=== PATIENT | male | born 1995 | race Caucasian/White ===

== ENCOUNTER 2018-09-05 19:01 | Emergency (ER) | payer MEDICAID ==
[~2018-09-05] VITALS: Ht 165.1 cm; Wt 95.3 kg
[2018-09-05 19:15] VITALS: BP 145/90
--- NOTE | 2018-09-05 19:33 | NUR ---
PATIENT PRESENTS TO ED WITH C/O DIARRHEA, HEAD ACHE, COUGH, RHINORRHEA X 4 DAYS. SKIN IS PINK/WARM/DRY; AAOX4 WITH EVEN AND STEADY GAIT; LUNGS CLEAR BL; HR EVEN AND REGULAR; PT DENIES ANY FEVER, CP, SOB, OR COUGH AT THIS TIME; PATIENT STATES PAIN OF 0/10 AT THIS TIME; VSS; PATIENT POSITIONED FOR COMFORT; HOB ELEVATED; BEDRAILS UP X2; BED DOWN. ER MD MADE AWARE OF PT STATUS. PMH--DENIES RX--DENIES
[2018-09-05 19:40] VITALS: BP 130/85
--- NOTE | 2018-09-05 19:40 | NUR ---
Patient discharged with v/s stable. Written and verbal after care instructions given and explained. Patient alert, oriented and verbalized understanding of instructions. Ambulatory with steady gait. All questions addressed prior to discharge. ID band removed. Patient advised to follow up with PMD. Rx of MOTRIN 800MG, PROMETHAZINE HYDROCHLORIDE/DEXTROMETHORPHAN HYDROBROMIDE 6.25MG-15MG/5ML given. Patient educated on indication of medication including possible reaction and side effects. Opportunity to ask questions provided and answered.
== END 2018-09-05 19:40 | disposition home or self-care (01) ==
LOC: MED 19:01
DX: J11.1 Influenza due to unidentified influenza virus with other respiratory manifestations (principal); R19.7 Diarrhea, unspecified
CPT/HCPCS: 99283

== ENCOUNTER 2019-01-02 13:37 | Emergency (ER) | payer MEDICAID, OTHER ==
[~2019-01-02] VITALS: Ht 165.1 cm; Wt 99.8 kg
[2019-01-02 13:41] VITALS: BP 131/77
--- NOTE | 2019-01-02 13:45 | NUR ---
TO BED 4 WITH STEADY GAIT.
--- NOTE | 2019-01-02 13:47 | NUR ---
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 +[facility] INTACT, +MILD SWELLING. TOOK IBUPROFEN LAST NIGHT WITH SOME RELIEF. VSS AT THIS TIME. PAIN 10. BED IS DOWN, LOCKED, BED RAIL X 1, ERMD TO SEE PT. HX: DENIES RX: DENIES
--- NOTE | 2019-01-02 13:55 | NUR ---
DR CONTRERAS AT BEDSIDE
--- NOTE | 2019-01-02 14:17 | NUR ---
XRAY AT BEDSIDE
[2019-01-02 14:33] VITALS: BP 134/76
--- NOTE | 2019-01-02 14:33 | NUR ---
Patient discharged with v/s stable. Written and verbal after care instructions given and explained. Patient verbalized understanding. Ambulatory with steady gait. All questions addressed prior to discharge. Advised to follow up with PMD REGARDING FINGER SPRAIN.
== END 2019-01-02 14:33 | disposition home or self-care (01) ==
LOC: MED 13:37
DX: S63.612A Unspecified sprain of right middle finger, initial encounter (principal); S63.614A Unspecified sprain of right ring finger, initial encounter; X50.9XXA Other and unspecified overexertion or strenuous movements or postures, initial encounter; Y93.89 Activity, other specified; Y92.89 Other specified places as the place of occurrence of the external cause; Y99.8 Other external cause status
CPT/HCPCS: 73130; 99283; Q0092

== ENCOUNTER 2023-04-13 12:50 | Emergency (ER) | payer OTHER ==
[~2023-04-13] VITALS: Ht 165.1 cm; Wt 99.8 kg
[2023-04-13 13:22] VITALS: BP 128/92; PULSE 66; RESP 14; TEMP 98.1; O2SAT 97
[2023-04-13] MEDS ORDERED: CLOT1CRE82 TP (14:47)
[2023-04-13 15:03] VITALS: BP 120/82; PULSE 70; RESP 14; TEMP 98.1; O2SAT 99
== END 2023-04-13 15:03 | disposition home or self-care (01) ==
LOC: MED 12:50
DX: N48.1 Balanitis (principal); Z79.899 Other long term (current) drug therapy
CPT/HCPCS: 99282

== ENCOUNTER 2024-01-17 21:40 | Emergency (ER) | payer SELFPAY ==
[~2024-01-17] VITALS: Ht 165.1 cm; Wt 98.9 kg
[~2024-01-17 21:40] MED LIST: CLOT1CRE82 TP
[2024-01-17 21:45] VITALS: BP 143/90; PULSE 75; RESP 18; TEMP 97.9; O2SAT 96
[2024-01-17] MEDS: MORPHINE SULFATE 4 MG/ML SYR IM ONE (23:14)
[2024-01-17] MEDS: KETOROLAC 60 MG/2 ML VIAL IM ONE (23:15)
[2024-01-17] MEDS ORDERED: TRAM-748 PO (23:16)
[2024-01-17] MEDS ORDERED: NAPR-337 PO (23:16)
[2024-01-17 23:30] VITALS: BP 143/90; PULSE 75; RESP 18; TEMP 97.9; O2SAT 96
== END 2024-01-17 23:30 | disposition home or self-care (01) ==
LOC: MED 21:40
DX: S33.9XXA Sprain of unspecified parts of lumbar spine and pelvis, initial encounter (principal); Z79.899 Other long term (current) drug therapy; X58.XXXA Exposure to other specified factors, initial encounter; Y92.89 Other specified places as the place of occurrence of the external cause; Y93.89 Activity, other specified; Y99.8 Other external cause status
CPT/HCPCS: 96372; 99284; J1885; J2270